=== PATIENT | female | born 1945 | race Caucasian/White ===

== ENCOUNTER 2016-07-29 11:11 | Day surgery (SDC) | payer MEDICARE, BC ==
--- NOTE | ~2016-07-29 | EGD ---
EGD REPORT [facility] [address]. [id number] NAME: SHANTI BENDER : [birth year] STATUS : REG [facility]#: [id number] AGE: 70 ADM/REG DATE : 07/29/16 MR#: [id number] REPORT SERV DATE: 07/29/16 DICTATED BY: LANRE SAWYER DATE: 07/29/16 REPORT STATUS : Draft TRANSCRIBED BY: [facility] DATE: 07/29/16 Endoscopy Center Patient Name: Shanti Bender Date of : 1945 Attending MD: LANRE SAWYER MD Procedure Date No Time: 07/29/2016 Procedure: Upper GI endoscopy Indications: Dysphagia Referring MD: BRENDA FORBES MD Medicines: Propofol per Anesthesia Complications: No immediate complications. Procedure: Pre-Anesthesia Assessment: - ASA Grade Assessment: III - A patient with severe systemic disease. After obtaining informed consent, the endoscope was passed under direct vision. Throughout the procedure, the patient's blood pressure, pulse, and oxygen saturations were monitored continuously. The GIF [id number] was introduced through the mouth, and advanced to the third part of duodenum. The upper GI endoscopy was accomplished without difficulty. The patient tolerated the procedure well. The upper GI endoscopy was accomplished without difficulty. The patient tolerated the procedure well. Findings: A benign-appearing, intrinsic mild stenosis was found at the gastroesophageal junction and was traversed. A guidewire was placed and the scope was withdrawn. Dilation was performed with a Savary dilator with no resistance at 54 Fr. A prior Javier fundoplication was found in the cardia. This was characterized by healthy appearing mucosa. Impression: - Benign-appearing esophageal stricture. Dilated. - A Javier fundoplication was found. Recommendation: - The patient will be observed post-procedure, until all discharge criteria are met. - Return to previous diet today. - Continue present medications. - The findings and recommendations were discussed with the patient and their spouse. - After the procedure, if you experience any pain in abdomen or chest,shortness of breath,fever,chills,blood in stool,rectal bleeding,vomiting of any EGD REPORT [address] [id number] NAME: SHANTI BENDER : [birth year] STATUS : [place] [facility] [place]#: [id number] AGE: 70 ADM/REG DATE : 07/29/16 MR#: [id number] REPORT SERV DATE: 07/29/16 DICTATED BY: LANRE SAWYER. DATE: 07/29/16 REPORT STATUS : Draft TRANSCRIBED BY: [employer] DATE: 07/29/16 material,nausea,black stools or weakness or dizziness, GO TO THE EMERGENCY IMMEDIATELY!!!!!!!!! Procedure Code(s): --- Professional --- 12072, Esophagogastroduodenoscopy, flexible, transoral; with insertion of guide wire followed by passage of dilator(s) through esophagus over guide wire Diagnosis Code(s): --- Professional --- K22.2, Esophageal obstruction Z98.0, Intestinal bypass and anastomosis status R13.10, Dysphagia, unspecified CPT copyright 2013 [employer]. All rights reserved. The codes documented in this report are preliminary and upon basting marker review may be revised to meet current compliance requirements. Lanre Sawyer MD LANRE SAWYER MD 07/29/2016 1:47 PM This report has been signed electronically. Number of Addenda: 0 Note Initiated On: 07/29/2016 1:26 PM Scope Withdrawal Time 0 hours 0 minutes 0 seconds [id number] [place] [id number]
[~2016-07-29 11:11] MED LIST: AMB10 PO; ASAB PO; COLLOIDAL SILVER PO; COQ-10200 MG OR; COQ-10200 MG PO; COZ50 PO; COZAAR100 MG PO; DIL4TAB PO; DIOV160 PO; DSS PO; DURA75 TOP; EFFEX37.5 PO; EFFEX75 PO; EFFEXXR75 PO; EVENING OR; EVENING PRIMROSE; FISH-EPA1000 MG PO; FLEX PO; FLONASE NAS; FOLIC PO; GRAPE SEED EXTRACT; GRAPE SEED EXTRACT PO; IMOD; KADIAN100 MG PO; KADIAN60 MG PO; KLOR-CON M2020 MEQ PO; L40 PO; LEVOTHYROXIN50 MCG PO; LEVOTHYROXIN75 MCG PO; LIDODERM T; LIOR10 PO; MAG6464 MG PO; MAGNEBIND PO; MEDS; MSCONT60 PO; MSCONTIN PO; MULTIPLE VIT PO; NASONEX NAS; NATURA2 OP; NEUR300 PO; NEXIUM40 PO; NORV5 PO; NUVIGIL50 MG PO; OS500+D PO; OTC STOOL SOFTENER PO; PEP20 PO; POTASSIUM95 MG OR; PR25 PO; PROBIOTIC; PROVHFA INH; PROVIGIL2 PO; SINGULAIR1 PO; STOOL SOFTEN240 MG PO; SUCR PO; SYMBICORT 160/41 INH INH; SYN.05 PO; T PO; VAGIFEM10 MCG V; VASOTEC5 PO; VITAMIN B COMPLEX; VITAMIN D31000 UNIT PO; VITAMIN D400 UNI1 PO; VITC500 PO; VITE PO; VOLTAREN1 % TOP; XANAX XR1 MG PO; XANAX1 MG PO; XARELTO20 MG PO; XIFAXAN550 MG PO; XIIDRA1 EACH OPH; XOPEN0.5ML INH; XOPENEX HFA INH; XYZAL5 MG PO; ZANAFLEX2 MG PO; ZIAC10 PO; ZOFRAN4 PO; ZOFRAN8 PO; [UNRECOGNIZED DRUG - OTHER]; [UNRECOGNIZED DRUG - OTHER]; [UNRECOGNIZED DRUG - OTHER] PO
== END 2016-07-29 23:59 | disposition home or self-care (01) ==
LOC: DMU 11:11
PROVIDERS: Internal Medicine Gastroenterology
PROC: 0D748ZZ Dilation of Esophagogastric Junction, Via Natural or Artificial Opening Endoscopic (ICD-10-PCS; principal; 2016-07-29 13:00)
DX: K22.2 Esophageal obstruction (principal); I10 Essential (primary) hypertension; J45.909 Unspecified asthma, uncomplicated; I34.1 Nonrheumatic mitral (valve) prolapse; G47.33 Obstructive sleep apnea (adult) (pediatric); M79.7 Fibromyalgia; Z88.5 Allergy status to narcotic agent; Z98.0 Intestinal bypass and anastomosis status; Z88.0 Allergy status to penicillin; Z88.1 Allergy status to other antibiotic agents; Z88.2 Allergy status to sulfonamides; Z88.8 Allergy status to other drugs, medicaments and biological substances